=== PATIENT | female | born 1990 | race Caucasian/White ===

== ENCOUNTER 2016-10-20 21:34 | Emergency (ER) | payer OTHER ==
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
--- NOTE | 2016-10-21 01:30 | ED ORDER SUMMARY ---
..... Patient: ALVIN TOUSSAINT OrderSheet [facility] VisitID: [id number] [place] [address] 26y, F Registration Date/Time: 10/20/2016 ORDER SHEET Weight: 54.4 kg (stated) Allergies: PCN, Percocet, Amoxicillin GENERAL ORDERS: MEDICATION ORDERS: Cefixime PO 400 mg (NOW) (01:13 10/21/2016 SRoberts R.N. per protocol) (1:15 SRoberts R.N.) Flagyl PO 2000 mg (NOW) (01:14 10/21/2016 SRoberts R.N. per protocol) (1:15 SRoberts R.N.) Zithromax PO 1000 mg (NOW) (01:14 10/21/2016 SRoberts R.N. per protocol) (1:16 SRoberts R.N.) Levonorgestrel PO 1.5 mg (NOW) (01:15 10/21/2016 SRoberts R.N. per protocol) (1:16 SRoberts R.N.) IV FLUIDS: ORDER SHEET NOTES: [Electronically signed by Sapphire Garces R.N. (13:41 10/22/2016)] [Electronically signed by Soila Vanessa MD (04:42 10/27/2016)] [Electronically locked/signed by Sapphire Garces R.N. (13:41 10/22/2016)]
--- NOTE | 2016-10-21 01:30 | ED ORDER SUMMARY ---
..... Patient: ALVIN TOUSSAINT OrderSheet [facility] VisitID: [id number] [place] [address] 26y, F Registration Date/Time: 10/20/2016 ORDER SHEET Weight: 54.4 kg (stated) Allergies: PCN, Percocet, Amoxicillin GENERAL ORDERS: MEDICATION ORDERS: Cefixime PO 400 mg (NOW) (01:13 10/21/2016 SRoberts R.N. per protocol) (1:15 SRoberts R.N.) Flagyl PO 2000 mg (NOW) (01:14 10/21/2016 SRoberts R.N. per protocol) (1:15 SRoberts R.N.) Zithromax PO 1000 mg (NOW) (01:14 10/21/2016 SRoberts R.N. per protocol) (1:16 SRoberts R.N.) Levonorgestrel PO 1.5 mg (NOW) (01:15 10/21/2016 SRoberts R.N. per protocol) (1:16 SRoberts R.N.) IV FLUIDS: ORDER SHEET NOTES: [Electronically signed by Sapphire Garces R.N. (13:41 10/22/2016)] [Electronically signed by Soila Vanessa MD (04:42 10/27/2016)] [Electronically locked/signed by Sapphire Garces R.N. (13:41 10/22/2016)]
--- NOTE | 2016-10-27 04:42 | ED MED RECONCILIATION SUMMARY ---
Patient: ALVIN TOUSSAINT Medication Reconciliation Report [facility] VisitID: [id number] [address] [place] [address] 26y, F Registration Date/Time: 10/20/2016 Weight: 54.4 kg Height/Length: 62 in. BMI: 22.0 ALLERGIES: Amoxicillin, PCN, Percocet The patient's Home Medications are listed below: NONE. The source(s) of the original Home Medication information: patient The following Medications were given to the patient in the Emergency Department: Cefixime [PO] PO 400 mg, administered: 10/21/2016 12:15:00 AM Flagyl [PO] PO 2000 mg, administered: 10/21/2016 12:15:00 AM Zithromax [PO] PO 2000 mg, administered: 10/21/2016 12:16:00 AM Levonorgestrel [PO] PO 1.5 mg, administered: 10/21/2016 12:16:00 AM The following Medications were prescribed to the patient: None.
--- NOTE | 2016-10-27 04:42 | ED MED RECONCILIATION SUMMARY ---
Patient: ALVIN TOUSSAINT Medication Reconciliation Report [facility] VisitID: [id number] [address] [place] [address] 26y, F Registration Date/Time: 10/20/2016 Weight: 54.4 kg Height/Length: 62 in. BMI: 22.0 ALLERGIES: Amoxicillin, PCN, Percocet The patient's Home Medications are listed below: NONE. The source(s) of the original Home Medication information: patient The following Medications were given to the patient in the Emergency Department: Cefixime [PO] PO 400 mg, administered: 10/21/2016 12:15:00 AM Flagyl [PO] PO 2000 mg, administered: 10/21/2016 12:15:00 AM Zithromax [PO] PO 2000 mg, administered: 10/21/2016 12:16:00 AM Levonorgestrel [PO] PO 1.5 mg, administered: 10/21/2016 12:16:00 AM The following Medications were prescribed to the patient: None.
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
--- NOTE | 2016-10-27 04:42 | ED MAR SUMMARY ---
..... Medication Administration Record Located Within [facility] [address] [place] [address] Patient: ALVIN TOUSSAINT Visit ID: [id number] 26y, F Weight: 54.4 kg Height/Length: 62 in BMI: 22 ALLERGIES: Amoxicillin, Percocet, PCN Given 00:10/21/2016 Angy Myrick R.N. Medication Administered: CEFIXIME [PO], Dose: 400 mg PO. Medication Ordered: Cefixime PO 400 mg (NOW). Given 00:10/21/2016 Angy Myrick R.N. Medication Administered: FLAGYL [PO] (METRONIDAZOLE), Dose: 2000 mg PO. Medication Ordered: Flagyl PO 2000 mg (NOW). Given 00:10/21/2016 Angy Myrick R.N. Medication Administered: ZITHROMAX [PO], Dose: 2000 mg PO. Medication Ordered: Zithromax PO 1000 mg (NOW). Given 00:10/21/2016 Angy Myrick R.N. Medication Administered: LEVONORGESTREL [PO], Dose: 1.5 mg PO. Medication Ordered: Levonorgestrel PO 1.5 mg (NOW).
--- NOTE | 2016-10-27 04:42 | ED MAR SUMMARY ---
..... Medication Administration Record [facility] [address] [place] [address] Patient: ALVIN TOUSSAINT Visit ID: [id number] 26y, F Weight: 54.4 kg Height/Length: 62 in BMI: 22 ALLERGIES: Amoxicillin, Percocet, PCN Given 00:10/21/2016 Angy Myrick R.N. Medication Administered: CEFIXIME [PO], Dose: 400 mg PO. Medication Ordered: Cefixime PO 400 mg (NOW). Given 00:10/21/2016 Angy Myrick R.N. Medication Administered: FLAGYL [PO] (METRONIDAZOLE), Dose: 2000 mg PO. Medication Ordered: Flagyl PO 2000 mg (NOW). Given 00:10/21/2016 Angy Myrick R.N. Medication Administered: ZITHROMAX [PO], Dose: 2000 mg PO. Medication Ordered: Zithromax PO 1000 mg (NOW). Given 00:10/21/2016 Angy Myrick R.N. Medication Administered: LEVONORGESTREL [PO], Dose: 1.5 mg PO. Medication Ordered: Levonorgestrel PO 1.5 mg (NOW).
== END 2016-10-21 01:31 | disposition left against medical advice (07) ==
LOC: ED SRH 21:34
DX: T76.21XA Adult sexual abuse, suspected, initial encounter (principal); R10.2 Pelvic and perineal pain; Y04.8XXA Assault by other bodily force, initial encounter; Y93.89 Activity, other specified; Y92.481 Parking lot as the place of occurrence of the external cause; Y99.9 Unspecified external cause status; I10 Essential (primary) hypertension; Z88.5 Allergy status to narcotic agent; Z88.0 Allergy status to penicillin; Z88.1 Allergy status to other antibiotic agents